=== PATIENT | female | born 1990 | race Asian ===

== ENCOUNTER 2019-05-11 19:26 | Emergency (ER) | payer OTHER ==
[~2019-05-11] VITALS: Ht 152.4 cm; Wt 65.8 kg
[2019-05-11] MEDS ORDERED: ATIVAN1 MG ORAL (19:37)
[2019-05-11] MEDS ORDERED: SEROQUEL25 MG ORAL (19:37)
[2019-05-11] MEDS ORDERED: PROZAC20 MG ORAL (19:37)
[2019-05-11] MEDS ORDERED: ABILIFY5 MG ORAL (19:37)
--- NOTE | 2019-05-11 19:45 | NUR ---
ED Nurse Note: Patient walked into ED c/o left kidney pain that has been an ongoing issue for 30 days now, states that shes had a prior history of kidney stones and is feeling same symptoms as well
[2019-05-11] MEDS ORDERED: Ketorolac 30mg Inj IV ONE (20:00)
--- NOTE | 2019-05-11 20:03 | Emergency Room Report ---
History of Present Illness General Chief Complaint: Abdominal Pain Source: Patient (Gerry Ball MD) Present Illness HPI HPI: This is a 28-year-old female with a history of recurrent nephrolithiasis status post surgical resection 5 years ago, ectopic x2, depression/ anxiety presenting for evaluation of left-sided flank pain. Symptoms began approximately 1 week ago. She notes left-sided flank pain radiating to the left pelvis and through into the left groin. She had 1 day of gross hematuria 2 days ago however this is now resolved. She denies any dysuria or vaginal discharge/bleeding otherwise. This morning she began to experience significant nausea and several episodes of emesis which seemed to be now resolving. Her left-sided flank pain is getting worse and describes it as similar to her previous episodes of nephrolithiasis. Otherwise, she denies any fevers, chest pain, shortness of breath, URI symptoms, diarrhea, rash or other change in her health. PMH: Nephrolithiasis, ectopic PSH: Lithotripsy, nephrostomy tubes, laparoscopy Social Hx: Denies drug use, smoking, drinking alcohol (Gerry Ball MD) Allergies: Coded Allergies: No Known Allergies (Unverified , 05/11/19) Patient History Last Menstrual Period: 05/05/19 Now: No : 2 Para: 2 (Gerry Ball MD) Nursing Documentation-[facility] Past Medical History: No History, Except For History Of Psychiatric Problem: Yes - Bipolar, Anxiety (Gerry Ball MD) Review of Systems All Other Systems: negative except mentioned in HPI (Gerry Ball MD) Physical Exam Vital Signs Date Time Temp Pulse Resp B/P (MAP) Pulse Ox O2 Delivery O2 Flow Rate FiO2 05/11/19 19:33 98.8 80 18 113/75 (88) 98 Room Air General: Awake and alert, no acute distress HEENT: NC/AT. EOMI. Neck: Supple, trachea midline Chest Wall: No tenderness, no deformity Cardiovascular: RRR. S1 and S2 normal. No murmur appreciated Resp: Normal work of breathing. No cough, wheezing or crackles appreciated Abdomen: Soft, tenderness in the left lower quadrant without rebound. No masses appreciated. Nondistended Skin: Intact. No abrasions, laceration or rash over the exposed skin MSK: Normal tone and bulk. No obvious deformity. Moving all extremities Neuro: Awake and alert. Mentating appropriately. Spine/Back: Left-sided CVA tenderness, no tenderness on the right. (Gerry Ball MD) VS - Last 72 Hours, by Label Date Time Temp Pulse Resp B/P (MAP) Pulse Ox O2 Delivery O2 Flow Rate FiO2 05/11/19 20:58 98.7 05/11/19 19:45 80 18 Room Air 05/11/19 19:33 98.8 80 18 113/75 (88) 98 Room Air Sp02 EP Interpretation: reviewed, normal General Appearance: well appearing, no apparent distress, alert Head: normocephalic, atraumatic Eyes: bilateral eye PERRL, bilateral eye EOMI ENT: uvula midline, moist mucus membranes Neck: supple, thyroid normal, supple/symm/no masses Respiratory: lungs clear, no respiratory distress, no retraction, no accessory muscle use Cardiovascular #1: normal peripheral pulses, regular rate, rhythm, no edema, no gallop, no murmur Gastrointestinal: non tender, soft, no guarding, no rebound Musculoskeletal: normal inspection Neurologic: alert, oriented x3 Psychiatric: mood/affect normal Skin: no rash, warm/dry (Calderon Martines MD) Medical Decision Making Diagnostic Impression: Primary Impression: UTI (urinary tract infection) Additional Impression: Renal calculus, right ER Course This is a 28-year-old female with a past history of nephrolithiasis and ectopic presenting for evaluation of 1 week worsening left-sided flank pain now with symptoms of nausea, vomiting. Differential includes but is not limited to nephrolithiasis, UTI, pyelonephritis, STI, ectopic , abdominal pathology such as obstruction, kidney cysts. Of these, either nephrolithiasis or pyelonephritis or ectopic are the most concerning. Patient of a broad work-up including imaging with noncontrast CT, IV fluids, labs including test, urinalysis and treatment with IV fluids, antiemetics and NSAIDs. (Gerry Ball MD) ER Course Female presents with flank pain, nausea vomiting, patient had concern for renal stones, patient with a right kidney stone 2 mm nonobstructive, patient with a positive UTI, will provide patient with Keflex, return precautions were discussed, a cures report was ran, will provide patient with Flomax, [place], Naprosyn, and antibiotics Laboratory Tests Test 05/11/19 20:00 White Blood Count 7.9 K/UL (4.8-10.8) Red Blood Count 4.78 M/UL (4.20-5.40) Hemoglobin 14.0 G/DL (12.0-16.0) Hematocrit 40.3 % (37.0-47.0) Mean Corpuscular Volume 84 FL (80-99) Mean Corpuscular Hemoglobin 29.2 PG (27.0-31.0) Mean Corpuscular Hemoglobin Concent 34.7 G/DL (32.0-36.0) Red Cell Distribution Width 10.8 % (11.6-14.8) L Platelet Count 242 K/UL (150-450) Mean Platelet Volume 8.6 FL (6.5-10.1) Neutrophils (%) (Auto) 64.9 % (45.0-75.0) Lymphocytes (%) (Auto) 27.3 % (20.0-45.0) Monocytes (%) (Auto) 4.6 % (1.0-10.0) Eosinophils (%) (Auto) 2.1 % (0.0-3.0) Basophils (%) (Auto) 1.0 % (0.0-2.0) Prothrombin Time 10.3 SEC (9.30-11.50) Prothrombin Time INR 1.0 (0.9-1.1) PTT 29 SEC (23-33) Urine Color Pale yellow Urine Appearance Clear Urine pH 6 (4.5-8.0) Urine Specific [place] 1.015 (1.005-1.035) Urine Protein Negative (NEGATIVE) Urine Glucose (UA) Negative (NEGATIVE) Urine Ketones Negative (NEGATIVE) Urine Blood 3+ (NEGATIVE) H Urine Nitrite Negative (NEGATIVE) Urine Bilirubin Negative (NEGATIVE) Urine Urobilinogen Normal MG/DL (0.0-1.0) Urine Leukocyte Esterase 1+ (NEGATIVE) H Urine RBC 5-10 /HPF (0 - 2) H Urine WBC 0-2 /HPF (0 - 2) Urine Squamous Epithelial Cells Many /LPF (NONE/OCC) H Urine Bacteria Moderate /HPF (NONE) H Urine Mucus Many /LPF (NONE/OCC) H Urine HCG, Qualitative Negative (NEGATIVE) Sodium Level 140 MMOL/L (136-145) Potassium Level 3.7 MMOL/L (3.5-5.1) Chloride Level 103 MMOL/L (98-107) Carbon Dioxide Level 31 MMOL/L (21-32) Anion Gap 6 mmol/L (5-15) Blood Urea Nitrogen 15 mg/dL (7-18) Creatinine 0.9 MG/DL (0.55-1.30) Estimate Glomerular Filtration Rate > 60 mL/min (>60) Glucose Level 71 MG/DL (74-106) L Calcium Level 8.8 MG/DL (8.5-10.1) Total Bilirubin 0.3 MG/DL (0.2-1.0) Aspartate Amino Transferase (AST) 13 U/L (15-37) L Alanine Aminotransferase (ALT) 25 U/L (12-78) Alkaline Phosphatase 73 U/L (46-116) Total Protein 7.8 G/DL (6.4-8.2) Albumin 3.9 G/DL (3.4-5.0) Globulin 3.9 g/dL Albumin/Globulin Ratio 1.0 (1.0-2.7) Lipase 146 U/L (73-393) (Calderon Martines MD) CT/MRI/US Diagnostic Results CT/MRI/US Diagnostic Results : Impression CT abdomen: Non obstructive stone right kidney 2mm (Calderon Martines MD) Reevaluation Time: 20:30 Last Vital Signs Date Time Temp Pulse Resp B/P (MAP) Pulse Ox O2 Delivery O2 Flow Rate FiO2 05/11/19 19:33 98.8 80 18 113/75 (88) 98 Room Air Reevaluation Impression Lab work thus far shows no significant white count, normal renal function, negative test. Urinalysis did show 1+ leukocyte Estrace as well as bacteria with multiple epithelial cells concerning either for urinary tract infection or contaminated sample. Patient is pending CT scan to evaluate for nephrolithiasis which in my opinion is most likely in the setting of 3+ blood on urinalysis and the patient's prior history. If confirmed, she will likely require antibiotics. She will be signed out to the oncoming physician pending CT scan and ultimate disposition. She remains in stable condition. (Gerry Ball MD) Disposition: HOME, SELF-CARE Condition: Stable Signed Out To: Dr. Martines pending CT (Gerry Ball MD) Scripts Cephalexin* (CEPHALEXIN*) 500 Mg Tablet 500 MG ORAL EVERY 6 HOURS, #40 CAP Prov: Calderon Martines MD 05/11/19 Tamsulosin HCl (Flomax) 0.4 Mg Cap.er.24h 0.4 MG ORAL DAILY, #30 CAP Prov: Calderon Martines MD 05/11/19 Hydrocodone Bit/Acetaminophen 5-325* (NORCO 5-325*) 1 Each Tablet 1 TAB ORAL Q6H PRN for For Pain, #12 TAB 0 Refills Prov: Calderon Martines MD 05/11/19 Referrals: [facility],REFERRING (PCP) [facility] Patient Instructions: Dietary Guidelines to Help Prevent Kidney Stones, Kidney Stones, [id number] Additional Instructions: The patient was provided with discharge instructions, notified to follow-up with a primary care doctor and or specialist in the next 24-48 hours, and to return to the ED if they have worsening of their symptoms. Please note that this report is being documented using [employer] technology. This can lead to erroneous entry secondary to incorrect interpretation by the dictating instrument. Gerry Ball MD May 11, 2019 20:03 Calderon Martines MD May 11, 2019 21:27
[2019-05-11 20:18] LABS: EOSINOPHILS % (AUTO) 2.1 % (0.0-3.0); HEMATOCRIT 40.3 % (37.0-47.0); LYMPHOCYTES % (AUTO) 27.3 % (20.0-45.0); MEAN CORPUSCULAR VOLUME 84 FL (80-99); MONOCYTES % (AUTO) 4.6 % (1.0-10.0); NEUTROPHILS % (AUTO) 64.9 % (45.0-75.0); PLATELET COUNT 242 K/UL (150-450); RED BLOOD COUNT 4.78 M/UL (4.20-5.40); RED CELL DISTRIBUTION WIDTH 10.8 % (11.6-14.8); WHITE BLOOD COUNT 7.9 K/UL (4.8-10.8)
[2019-05-11 20:22] LABS: APPEARANCE,URINE CLEAR; BILIRUBIN, URINE NEGATIVE (NEGATIVE); COLOR,URINE PALE YELLOW; GLUCOSE, URINE (UA) NEGATIVE (NEGATIVE); KETONES,URINE NEGATIVE (NEGATIVE); LEUKOCYTE ESTERASE ,URINE 1+ (NEGATIVE); NITRITE,URINE NEGATIVE (NEGATIVE); PH,URINE 6 (4.5-8.0); PROTEIN,URINE NEGATIVE (NEGATIVE); UROBILINOGEN,URINE NORMAL MG/DL (0.0-1.0)
[2019-05-11 20:36] LABS: ANION GAP 6 mmol/L (5-15); BLOOD UREA NITROGEN 15 mg/dL (7-18); CALCIUM 8.8 MG/DL (8.5-10.1); CARBON DIOXIDE 31 MMOL/L (21-32); CHLORIDE 103 MMOL/L (98-107); CREATININE 0.9 MG/DL (0.55-1.30); POTASSIUM 3.7 MMOL/L (3.5-5.1); SODIUM 140 MMOL/L (136-145)
[2019-05-11 20:41] LABS: ALANINE AMINOTRANSFERASE 25 U/L (12-78); ALBUMIN 3.9 G/DL (3.4-5.0); ALKALINE PHOSPHATASE 73 U/L (46-116); ASPARTATE AMINO TRANSFERASE 13 U/L (15-37); BILIRUBIN,TOTAL 0.3 MG/DL (0.2-1.0)
[2019-05-11] MEDS ORDERED: cefTRIAXone 1 GM in NS 55 ML IVPB ONE (21:00)
[2019-05-11] MEDS ORDERED: CEPHALEXIN500 M1 ORAL (21:26)
[2019-05-11] MEDS ORDERED: FLOMAX0.4 MG ORAL (21:26)
[2019-05-11] MEDS ORDERED: NORCO 5-325 TA1 EACH ORAL (21:26)
[2019-05-11 21:50] VITALS: BP 118/73
--- NOTE | 2019-05-11 21:50 | NUR ---
ER DISCHARGE NOTE: Patient is cleared to be discharged per ERMD, pt is aox4, on room air, with stable vital signs. pt was given dc and prescription instructions, pt was able to verbalize understanding, pt id band and iv site removed without complications. pt is able to ambulate with steady gait. pt took all belongings.
--- NOTE | 2019-05-12 09:27 | Diagnostic Imaging Report ---
Indication: Abdominal pain Technique: Continuous helical transaxial imaging of the abdomen and pelvis was obtained from the lung bases to the pubic symphysis. No intravenous contrast was administered. Coronal 2-D reformats were also obtained. Automatic Exposure Control was utilized. Total Dose length Product (DLP): 921.[address] Dose Index Volume (CTDIvol): 16.58 mGy Comparison: none Findings: There is a 2 mm nonobstructive stone demonstrated within the lower pole the right kidney. There is no hydronephrosis identified. There is no free fluid. Bowel gas pattern is nonobstructive. There are small nodes present throughout the mesentery especially on the right lower quadrant. Uterus noted. Bladder is nondistended. The appendix is normal. Gallbladder is unremarkable. IMPRESSION: Nonobstructive 2 mm stone in the right kidney. The CT scanner at [facility] is accredited by the [employer] and the scans are performed using dose optimization techniques as appropriate to a performed exam including Automatic Exposure control.
== END 2019-05-11 21:50 | disposition home or self-care (01) ==
LOC: EMR 19:50
DX: N39.0 Urinary tract infection, site not specified (principal); N20.0 Calculus of kidney; F31.9 Bipolar disorder, unspecified; F41.9 Anxiety disorder, unspecified; Z96.0 Presence of urogenital implants; Z87.442 Personal history of urinary calculi
CPT/HCPCS: 36415; 74176; 80053; 81003; 81025; 83690; 85025; 85610; 85730; 86850; 86900; 86901; 87086; 96361; 96365; 96375; 99284; J0696; J1885; J2405

== ENCOUNTER 2019-06-15 21:51 | Emergency (ER) | payer OTHER ==
[~2019-06-15] VITALS: Ht 149.9 cm; Wt 70.3 kg
[~2019-06-15 21:51] MED LIST: ABILIFY5 MG ORAL; ATIVAN1 MG ORAL; CEPHALEXIN500 M1 ORAL; FLOMAX0.4 MG ORAL; NORCO 5-325 TA1 EACH ORAL; PROZAC20 MG ORAL; SEROQUEL25 MG ORAL
[2019-06-15 22:19] VITALS: BP 137/81
[2019-06-15] MEDS ORDERED: ZYPREXA5 MG ORAL (22:23)
--- NOTE | 2019-06-15 22:23 | Emergency Room Report ---
History of Present Illness General Chief Complaint: Behavioral Complaint Source: Patient Present Illness HPI This is a 28-year-old female with a history of bipolar. She presents with chief complaint of side effect of medication. She was taking Seroquel but had intolerance and weight gain from it. Her doctor switched her to Abilify. She started having some abnormal movement and shakiness. Cogentin was started. According to mom things seem to be getting worse. She seemed to be more shaky and mental status not as clear. She gets confused at times. Denies any drug use. No nausea no vomiting. No fever chills but denies any other complaint. No suicidal thoughts or homicidal thoughts. Allergies: Coded Allergies: No Known Allergies (Unverified , 05/11/19) Patient History Past Medical History: see triage record, old chart reviewed, psych hx Past Surgical History: none Pertinent Family History: none Social History: Denies: smoking Last Menstrual Period: 06/08/19 Now: No Immunizations: UTD Reviewed Nursing Documentation: PMH: Agreed; PSxH: Agreed Nursing Documentation-PMH Past Medical History: No History, Except For History Of Psychiatric Problem: Yes - DEPRESSION, SCHIZOAFFECTIVE Review of Systems Eye: Denies: eye pain, blurred vision ENT: Denies: ear pain, nose congestion, throat swelling Respiratory: Denies: cough, shortness of breath Cardiovascular: Denies: chest pain, palpitations Gastrointestinal: Denies: abdominal pain, diarrhea, nausea, vomiting Musculoskeletal: Denies: back pain, joint pain Skin: Denies: rash Neurological: Denies: headache, numbness Endocrine: Denies: increased thirst, increased urine Hematologic/Lymphatic: Denies: easy bruising All Other Systems: negative except mentioned in HPI Physical Exam Vital Signs Date Time Temp Pulse Resp B/P (MAP) Pulse Ox O2 Delivery O2 Flow Rate FiO2 06/15/19 21:57 99.0 104 18 137/81 (99) 97 Room Air Vitals normal Sp02 EP Interpretation: reviewed, normal General Appearance: well appearing, no apparent distress, alert Head: normocephalic, atraumatic Eyes: bilateral eye PERRL, bilateral eye EOMI ENT: hearing grossly normal, normal pharynx Neck: full range of motion, supple, no meningismus Respiratory: chest non-tender, lungs clear, normal breath sounds Cardiovascular #1: regular rate, rhythm, no murmur Gastrointestinal: normal bowel sounds, non tender, no mass, no organomegaly, no bruit, non-distended Musculoskeletal: back normal, gait/station normal, normal range of motion Psychiatric: mood/affect normal Medical Decision Making Diagnostic Impression: Primary Impression: Side effect of medication ER Course Patient with possible side effect of medication. We will switch her to Zyprexa. No evidence of suicidal thoughts homicidal thought. No criteria for 5150. Will discharge home. Last Vital Signs Date Time Temp Pulse Resp B/P (MAP) Pulse Ox O2 Delivery O2 Flow Rate FiO2 06/15/19 21:57 99.0 104 18 137/81 (99) 97 Room Air Status: improved Disposition: HOME, SELF-CARE Condition: Stable Scripts Olanzapine* (ZYPREXA*) 5 Mg Tablet 5 MG ORAL DAILY, #30 TAB Prov: Piotr Payton MD 06/15/19 Additional Instructions: Stop your Cogentin and Abilify. Take Zyprexa instead. Keep your appointment with your counselor next week. Return if symptoms worsen. Piotr Payton MD Jun 15, 2019 22:23
[2019-06-15] MEDS ORDERED: Haloperidol 5mg/ml Inj IM ONE (22:30)
[2019-06-15 22:34] VITALS: BP 137/81
== END 2019-06-15 22:34 | disposition home or self-care (01) ==
LOC: EMR 22:22
DX: R25.8 Other abnormal involuntary movements (principal); T43.595A Adverse effect of other antipsychotics and neuroleptics, initial encounter; Y92.9 Unspecified place or not applicable; F32.9 Major depressive disorder, single episode, unspecified; F25.9 Schizoaffective disorder, unspecified
CPT/HCPCS: 96372; 99283; J1630